=== PATIENT | female | born 1935 | race Hispanic/Latino ===

== ENCOUNTER 2017-11-17 15:57 | Emergency (ER) | payer MEDICARE ==
[~2017-11-17 15:57] MED LIST: ACET-66 PO; CYAN250014 PO; DIPH25TA18 PO; DONE10TA43 PO; ESCI20TA36 PO; FOLI1TAB15 PO; GLIP10TA9 PO; INSLAN SQ; LEVO500T2 PO; MEMA28CA PO; MONT10TA21 PO; MV C PO; PRAV20TA4 PO; ROPI1TAB11 PO
[2017-11-17 16:54] LABS: BASOPHILS % (AUTO) 0.5 % (0.0-5.0); EOSINOPHILS % (AUTO) 1.9 % (0.0-8.0); HEMATOCRIT 38.5 % (36-48); LYMPHOCYTES % (AUTO) 28.4 % (21.0-51.0); MEAN CORPUSCULAR HEMOGLOBIN 31.1 pg (27.0-33.0); MEAN CORPUSCULAR HGB CONC 33.9 g/dL (32.0-36.0); MEAN CORPUSCULAR VOLUME 91.8 fL (79-99); MONOCYTES % (AUTO) 8.6 % (3.0-13.0); NEUTROPHILS % (AUTO) 60.6 % (40.0-77.0); PLATELET COUNT (AUTO) 289 K/uL (130-400); RED BLOOD CELL COUNT(AUTO) 4.19 MIL/uL (4.00-5.50); RED CELL DISTRIBUTION WIDTH 14.3 % (11.0-15.5); WHITE BLOOD COUNT (AUTO) 8.5 K/uL (4.8-10.8)
[2017-11-17 17:03] LABS: CREATININE 1.1 mg/dL (0.5-1.5); POTASSIUM 3.9 mmol/L (3.5-5.1)
[2017-11-17 17:08] LABS: BILIRUBIN,TOTAL 0.3 mg/dL (0.2-1.0); TOTAL PROTEIN, SERUM 6.6 g/dL (6.0-8.3)
[2017-11-17] MEDS ORDERED: SODIUM CHLORIDE 0.9% 500ML 500 ML IV ONE (17:09)
[2017-11-17] MEDS ORDERED: INSULIN HUMULIN R 100 UNIT/ML 3ML ONE (17:42)
== END 2017-11-17 18:26 | disposition home or self-care (01) ==
LOC: EDH 15:57
DX: E11.65 Type 2 diabetes mellitus with hyperglycemia (principal); G20 Parkinson's disease; Z79.4 Long term (current) use of insulin; Z98.890 Other specified postprocedural states
CPT/HCPCS: 36415; 80053; 82948 ×3; 85025; 96374; 99284; J1815; J7040

== ENCOUNTER → 2018-01-05 | Outpatient (CLI) | payer MEDICARE | END | disposition home or self-care (01) | LOC: RAH 08:26 | PROVIDERS: ATTEND Family Medicine | DX: N39.0 Urinary tract infection, site not specified (principal); Z87.440 Personal history of urinary (tract) infections; Z90.49 Acquired absence of other specified parts of digestive tract | CPT/HCPCS: 74176 ==

== ENCOUNTER → 2018-04-18 | Outpatient (CLI) | payer MEDICARE | END | disposition home or self-care (01) | LOC: SHCH 10:33 | PROVIDERS: ATTEND Internal Medicine Cardiovascular Disease | DX: R00.2 Palpitations (principal); I10 Essential (primary) hypertension | CPT/HCPCS: 93306 ==

== ENCOUNTER 2018-04-20 11:58 | Emergency (ER) | payer MEDICARE ==
[2018-04-20] MEDS ORDERED: KETOROLAC TROMETHAMINE 30MG/ML ONE (12:40)
[2018-04-20] MEDS ORDERED: ACETAMINOPHEN EXTRA STRENGTH 500 MG TABLET ONE (12:40)
[2018-04-20 12:52] LABS: BASOPHILS % (AUTO) 0.8 % (0.0-5.0); EOSINOPHILS % (AUTO) 1.6 % (0.0-8.0); HEMATOCRIT 40.6 % (36-48); LYMPHOCYTES % (AUTO) 23.6 % (21.0-51.0); MEAN CORPUSCULAR HEMOGLOBIN 31.2 pg (27.0-33.0); MEAN CORPUSCULAR HGB CONC 32.8 g/dL (32.0-36.0); MONOCYTES % (AUTO) 7.4 % (3.0-13.0); NEUTROPHILS % (AUTO) 66.6 % (40.0-77.0); PLATELET COUNT (AUTO) 293 K/uL (130-400); RED BLOOD CELL COUNT(AUTO) 4.27 MIL/uL (4.00-5.50); RED CELL DISTRIBUTION WIDTH 14.8 % (11.0-15.5); WHITE BLOOD COUNT (AUTO) 8.5 K/uL (4.8-10.8)
[2018-04-20 13:14] LABS: CREATININE 0.9 mg/dL (0.5-1.5); POTASSIUM 4.5 mmol/L (3.5-5.1)
== END 2018-04-20 14:48 | disposition home or self-care (01) ==
LOC: EDH 11:58
DX: M17.11 Unilateral primary osteoarthritis, right knee (principal); E11.9 Type 2 diabetes mellitus without complications; E78.5 Hyperlipidemia, unspecified; G20 Parkinson's disease; Z79.4 Long term (current) use of insulin
CPT/HCPCS: 36415; 73562; 80048; 85025; 96372; 99285; J1885

== ENCOUNTER 2018-09-16 08:47 | Inpatient (IN) | payer OTHER, MEDICARE ==
--- NOTE | 2017-09-20 15:00 | NUR ---
AUTH RECD, PT NOT R YET READY FOR DISCHARGE WILL FOLLOW UP IN AM RE PT CAN BE DC TO [facility]
[~2018-09-16] VITALS: Ht 165.1 cm; Wt 89.4 kg
[2018-09-16] MEDS: SODIUM CHLORIDE 0.9% 1000ML 1,000 ML IV SCH ×2 (08:36→15:00)
[2018-09-16] MEDS ORDERED: SODIUM CHLORIDE 0.9% 1000ML 1,000 ML IV ONE (09:22)
[2018-09-16 09:27] LABS: APPEARANCE,URINE Cloudy (CLEAR); BILIRUBIN,URINE Negative (NEGATIVE); COLOR,URINE Yellow (YELLOW); GLUCOSE, URINE (UA) Negative (NEGATIVE); KETONES,URINE Negative (NEGATIVE); LEUKOCYTE ESTERASE ,URINE Trace (NEGATIVE); NITRATE,URINE Negative (NEGATIVE); OCCULT BLOOD,URINE Negative (NEGATIVE); PROTEIN,URINE Negative (NEGATIVE); UROBILINOGEN,URINE 0.2 mg/dL (0.2-1.0)
[2018-09-16 09:33] LABS: BASOPHILS % (AUTO) 0.7 % (0.0-5.0); EOSINOPHILS % (AUTO) 1.2 % (0.0-8.0); HEMATOCRIT 40.8 % (36-48); LYMPHOCYTES % (AUTO) 16.3 % (21.0-51.0); MEAN CORPUSCULAR HEMOGLOBIN 29.8 pg (27.0-33.0); MEAN CORPUSCULAR HGB CONC 32.5 g/dL (32.0-36.0); MEAN CORPUSCULAR VOLUME 91.7 fL (79-99); MONOCYTES % (AUTO) 6.1 % (3.0-13.0); NEUTROPHILS % (AUTO) 75.7 % (40.0-77.0); PLATELET COUNT (AUTO) 306 K/uL (130-400); RED BLOOD CELL COUNT(AUTO) 4.44 MIL/uL (4.00-5.50); RED CELL DISTRIBUTION WIDTH 15.7 % (11.0-15.5); WHITE BLOOD COUNT (AUTO) 11.2 K/uL (4.8-10.8)
[2018-09-16 09:34] LABS: AMPHET/METH SCREEN,URINE NEGATIVE (NEGATIVE); BARBITURATE SCREEN, URINE NEGATIVE (NEGATIVE); BENZODIAZEPINES SCREEN,URINE NEGATIVE (NEGATIVE); CANNABINOID SCREEN,URINE NEGATIVE (NEGATIVE); COCAINE SCREEN,URINE NEGATIVE (NEGATIVE); OPIATE SCREEN,URINE NEGATIVE (NEGATIVE); PHENCYCLIDINE SCREEN,URINE NEGATIVE (NEGATIVE)
[2018-09-16 09:47] LABS: RBC,URINE 0-1 /HPF (0-1)
[2018-09-16 09:48] LABS: BACTERIA,URINE Rare /HPF (None Seen); WBC,URINE 0-1 /HPF (0-1)
[2018-09-16] MEDS ORDERED: ONDANSETRON HCL 4 MG/2 ML VIAL ONE (09:57)
[2018-09-16] MEDS ORDERED: MORPHINE SULFATE 4 MG/1ML SYG ONE (09:57)
[2018-09-16 10:02] LABS: ALBUMIN 2.9 g/dL (3.5-5.0); BILIRUBIN,TOTAL 0.5 mg/dL (0.2-1.0); TOTAL PROTEIN, SERUM 6.7 g/dL (6.0-8.3)
[2018-09-16] MEDS ORDERED: HYDRALAZINE HCL 20 MG/ML VIAL IV PRN (10:45)
[2018-09-16] MEDS ORDERED: ONDANSETRON HCL 4 MG/2 ML VIAL IV PRN (10:45)
--- NOTE | 2018-09-16 14:45 | NUR ---
BLOOD SUGAR REPORT TAKEN FROM ROSIBEL SEXTON IN ED DEPARTMENT. LAST BLOOD SUGAR OF 78 AT ABOUT 9:30AM. PATIENT HAS BEEN NPO FOR POSSIBLE PROCEDURE WITH DR. JOLLY. BLOOD SUGAR CHECKED AT BEDSIDE ONCE PATIENT WAS IN ROOM, BLOOD SUGAR NOTED TO BE 52. MIKEL [place] TREASURER MADE AWARE, OK FOR 8OZ OF ORANGE JUICE AND INITIATE HYPOGLYCEMIC PROTOCOL. PT IS AWAKE AND ALERT, SLIGHTLY PALE BUT STATING SHE FEELS OK. 8OZ OF ORANGE JUICE GIVEN AND REPEAT BLOOD SUGAR NOTED TO BE 78, ASYMPTOMATIC AT THE MOMENT. WILL CONTINUE TO MONITOR PT CLOSELY.
[2018-09-16 15:02] VITALS: BP 118/49
[2018-09-16] MEDS ORDERED: GLUCAGON 1MG KIT 1 MG ML IM PRN (15:30)
[2018-09-16] MEDS: MORPHINE SULFATE 4 MG/1ML SYG IV PRN ×2 (15:30→20:47)
[2018-09-16] MEDS ORDERED: DEXTROSE 50%-WATER 50 ML DISP.SYRIN IV PRN (15:30)
[2018-09-16] MEDS: INSULIN HUMULIN R 100 UNIT/ML 3ML SQ SCH ×2 (16:30→20:42)
[2018-09-16 17:16] VITALS: BP 115/48
[2018-09-16] MEDS ORDERED: CHOL200074 PO (19:07)
[2018-09-16] MEDS ORDERED: AEC81 PO (19:07)
[2018-09-16] MEDS ORDERED: MIRT-72 PO (19:07)
[2018-09-16] MEDS ORDERED: GLIP10TA9 PO (19:08)
[2018-09-16] MEDS ORDERED: ESCI20TA36 PO (19:08)
[2018-09-16] MEDS ORDERED: INSLAN SQ (19:09)
[2018-09-16 19:53] VITALS: BP 103/52
[2018-09-16] MEDS: HEPARIN SODIUM 5000UNIT/ML 1ML VIAL SQ SCH (20:42)
[2018-09-16] MEDS: METOPROLOL TARTRATE 25 MG TAB PO SCH (20:42)
[2018-09-16] MEDS ORDERED: FAMOTIDINE/PF 20 MG/2 ML VIAL IV SCH (21:00)
[2018-09-16] MEDS: ACETAMINOPHEN 325 MG TAB PO PRN (22:23)
[2018-09-16] MEDS ORDERED: ACETAMINOPHEN 500 MG PO PRN (23:00)
[2018-09-16 23:20] VITALS: BP 113/52
[2018-09-17] MEDS ORDERED: SODIUM CHLORIDE 0.9% 500ML 500 ML IV ONE (03:19)
[2018-09-17 04:16] VITALS: BP 109/55
[2018-09-17] MEDS: INSULIN HUMULIN R 100 UNIT/ML 3ML SQ SCH ×4 (06:38→20:07)
[2018-09-17] MEDS: MORPHINE SULFATE 2 MG/ML 1ML SYG IV PRN ×3 (06:39→11:38)
[2018-09-17 07:47] VITALS: BP 110/40
[2018-09-17] MEDS: METOPROLOL TARTRATE 25 MG TAB PO SCH ×2 (09:00→20:54)
[2018-09-17] MEDS: ***HM***Cholecalciferol (Vitamin D3) 1,000 UNIT PO SCH (09:00)
[2018-09-17] MEDS: MEMANTINE HCL 28 MG PO SCH (09:00)
[2018-09-17] MEDS: INSULIN GLARGINE 100 UNITS/ML 10 ML VIAL SQ SCH (09:00)
[2018-09-17] MEDS: ESCITALOPRAM OXALATE 20 MG PO SCH ×2 (09:00→21:00)
[2018-09-17] MEDS: HEPARIN SODIUM 5000UNIT/ML 1ML VIAL SQ SCH ×2 (09:06→21:14)
[2018-09-17] MEDS: ASPIRIN 81 MG EC TAB PO SCH (09:11)
[2018-09-17] MEDS: ROPINIROLE HCL 1 MG TABLET PO SCH ×3 (09:11→20:54)
[2018-09-17] MEDS: FAMOTIDINE/PF 20 MG/2 ML VIAL IV SCH (09:12)
[2018-09-17] MEDS: ACETAMINOPHEN 325 MG TAB PO PRN (09:13)
[2018-09-17 11:19] VITALS: BP 107/45
[2018-09-17] MEDS: SODIUM CHLORIDE 0.9% 1000ML 1,000 ML IV SCH ×2 (12:20→21:17)
[2018-09-17 15:30] VITALS: BP 118/49
--- NOTE | 2018-09-17 15:41 | NUR ---
cm note met with patient and with daughter christophe and other son. pt resides at home with christophe and other family members. , and uses walker for ambulation, has sc, caro,and bsc, recliner, has provider 1-2hrs daily. states daughter takes to [facility] via private vehicle. discussed snf level of care for rehab, but daughter states she would rather have her go home instead of snf, and would request HH if possible. dcpla is back to home. Addendum: 09/17/18 at 1544 by ANA LLAMAS CM Amended: Links added.
[2018-09-17 19:54] VITALS: BP 125/76
[2018-09-17] MEDS: DONEPEZIL HCL 5 MG TAB PO SCH (20:54)
[2018-09-17] MEDS: MIRTAZAPINE 15 MG TABLET PO SCH (20:54)
[2018-09-17] MEDS: MONTELUKAST SODIUM 10 MG TAB PO SCH (20:54)
[2018-09-17] MEDS: SIMVASTATIN 20 MG TABLET PO SCH (20:54)
[2018-09-17] MEDS ORDERED: ***HM***Pravastatin Sodium 20 MG PO SCH (21:00)
[2018-09-18] VITALS (7 sets, daily range): BP systolic 107–143; BP diastolic 50–61
[2018-09-18] MEDS: ACETAMINOPHEN 325 MG TAB PO PRN (00:06)
[2018-09-18 04:33] LABS: EOSINOPHILS % (AUTO) 1.5 % (0.0-8.0); LYMPHOCYTES % (AUTO) 25.9 % (21.0-51.0); MEAN CORPUSCULAR HEMOGLOBIN 30.3 pg (27.0-33.0); MEAN CORPUSCULAR HGB CONC 33.1 g/dL (32.0-36.0); MEAN CORPUSCULAR VOLUME 91.4 fL (79-99); MONOCYTES % (AUTO) 8.2 % (3.0-13.0); NEUTROPHILS % (AUTO) 63.4 % (40.0-77.0); PLATELET COUNT (AUTO) 266 K/uL (130-400); RED BLOOD CELL COUNT(AUTO) 3.61 MIL/uL (4.00-5.50); RED CELL DISTRIBUTION WIDTH 15.5 % (11.0-15.5); WHITE BLOOD COUNT (AUTO) 8.3 K/uL (4.8-10.8)
[2018-09-18 04:59] LABS: POTASSIUM 3.9 mmol/L (3.5-5.1)
[2018-09-18] MEDS: INSULIN HUMULIN R 100 UNIT/ML 3ML SQ SCH ×4 (05:55→21:00)
[2018-09-18] MEDS: INSULIN GLARGINE 100 UNITS/ML 10 ML VIAL SQ SCH (08:22)
[2018-09-18] MEDS: HEPARIN SODIUM 5000UNIT/ML 1ML VIAL SQ SCH ×2 (08:22→21:05)
[2018-09-18] MEDS: FAMOTIDINE/PF 20 MG/2 ML VIAL IV SCH (08:24)
[2018-09-18] MEDS: ASPIRIN 81 MG EC TAB PO SCH (08:24)
[2018-09-18] MEDS: ROPINIROLE HCL 1 MG TABLET PO SCH ×3 (08:24→20:50)
[2018-09-18] MEDS: ***HM***Cholecalciferol (Vitamin D3) 1,000 UNIT PO SCH (08:25)
[2018-09-18] MEDS: MEMANTINE HCL 28 MG PO SCH (08:25)
[2018-09-18] MEDS: METOPROLOL TARTRATE 25 MG TAB PO SCH ×2 (08:26→20:50)
[2018-09-18] MEDS: ESCITALOPRAM OXALATE 20 MG PO SCH ×2 (08:26→21:06)
[2018-09-18] MEDS: LEVOFLOXACIN 500 MG/D5W 100 ML 100 ML IV SCH (14:51)
[2018-09-18] MEDS: POLYETHYLENE GLYCOL 3350 17 GM POWD.PACK PO SCH (14:51)
[2018-09-18] MEDS: SODIUM CHLORIDE 0.9% 1000ML 1,000 ML IV SCH (15:59)
[2018-09-18] MEDS: MONTELUKAST SODIUM 10 MG TAB PO SCH (20:50)
[2018-09-18] MEDS: DONEPEZIL HCL 5 MG TAB PO SCH (20:50)
[2018-09-18] MEDS: MIRTAZAPINE 15 MG TABLET PO SCH (20:50)
[2018-09-18] MEDS: SIMVASTATIN 20 MG TABLET PO SCH (20:50)
[2018-09-19] MEDS ORDERED: SODIUM CHLORIDE 0.9% 500ML 500 ML IV SCH
[2018-09-19] MEDS: SODIUM CHLORIDE 0.9% 1000ML 1,000 ML IV SCH ×2 (02:58→16:45)
[2018-09-19 03:15] VITALS: BP 153/70
[2018-09-19 04:51] LABS: BASOPHILS % (AUTO) 0.3 % (0.0-5.0); EOSINOPHILS % (AUTO) 1.7 % (0.0-8.0); HEMATOCRIT 37.1 % (36-48); LYMPHOCYTES % (AUTO) 17.9 % (21.0-51.0); MEAN CORPUSCULAR HEMOGLOBIN 30.1 pg (27.0-33.0); MEAN CORPUSCULAR HGB CONC 33.1 g/dL (32.0-36.0); MEAN CORPUSCULAR VOLUME 90.9 fL (79-99); MONOCYTES % (AUTO) 7.1 % (3.0-13.0); PLATELET COUNT (AUTO) 286 K/uL (130-400); RED BLOOD CELL COUNT(AUTO) 4.08 MIL/uL (4.00-5.50); RED CELL DISTRIBUTION WIDTH 15.2 % (11.0-15.5); WHITE BLOOD COUNT (AUTO) 9.2 K/uL (4.8-10.8)
[2018-09-19 05:07] LABS: CREATININE 0.9 mg/dL (0.5-1.5); POTASSIUM 3.8 mmol/L (3.5-5.1)
[2018-09-19] MEDS: INSULIN HUMULIN R 100 UNIT/ML 3ML SQ SCH ×4 (05:38→20:33)
[2018-09-19 08:15] VITALS: BP 144/60
[2018-09-19] MEDS: FAMOTIDINE/PF 20 MG/2 ML VIAL IV SCH (08:35)
[2018-09-19] MEDS: METOPROLOL TARTRATE 25 MG TAB PO SCH ×2 (08:35→20:42)
[2018-09-19] MEDS: ROPINIROLE HCL 1 MG TABLET PO SCH ×3 (08:35→20:39)
[2018-09-19] MEDS: ASPIRIN 81 MG EC TAB PO SCH (08:35)
[2018-09-19] MEDS: POLYETHYLENE GLYCOL 3350 17 GM POWD.PACK PO SCH (08:36)
[2018-09-19] MEDS: ESCITALOPRAM OXALATE 20 MG PO SCH ×2 (08:37→20:43)
[2018-09-19] MEDS: ***HM***Cholecalciferol (Vitamin D3) 1,000 UNIT PO SCH (08:37)
[2018-09-19] MEDS: LEVOFLOXACIN 500 MG/D5W 100 ML 100 ML IV SCH (08:37)
[2018-09-19] MEDS: MEMANTINE HCL 28 MG PO SCH (08:37)
[2018-09-19] MEDS: HEPARIN SODIUM 5000UNIT/ML 1ML VIAL SQ SCH ×2 (08:39→20:43)
[2018-09-19] MEDS: INSULIN GLARGINE 100 UNITS/ML 10 ML VIAL SQ SCH (08:40)
--- NOTE | 2018-09-19 10:00 | NUR ---
SENT REFERRAL TO [facility] REQUESTED WAITING ON AUTH
[2018-09-19 11:12] VITALS: BP 118/60
[2018-09-19 16:07] VITALS: BP 151/77
[2018-09-19 20:00] VITALS: BP 139/60
[2018-09-19] MEDS: MONTELUKAST SODIUM 10 MG TAB PO SCH (20:38)
[2018-09-19] MEDS: SIMVASTATIN 20 MG TABLET PO SCH (20:38)
[2018-09-19] MEDS: MIRTAZAPINE 15 MG TABLET PO SCH (20:38)
[2018-09-19] MEDS: DONEPEZIL HCL 5 MG TAB PO SCH (20:39)
[2018-09-20] VITALS (7 sets, daily range): BP systolic 121–147; BP diastolic 56–69
[2018-09-20 05:30] LABS: BASOPHILS % (AUTO) 0.3 % (0.0-5.0); EOSINOPHILS % (AUTO) 1.6 % (0.0-8.0); HEMATOCRIT 33.1 % (36-48); LYMPHOCYTES % (AUTO) 23.8 % (21.0-51.0); MEAN CORPUSCULAR HEMOGLOBIN 30.5 pg (27.0-33.0); MEAN CORPUSCULAR HGB CONC 33.8 g/dL (32.0-36.0); MEAN CORPUSCULAR VOLUME 90.2 fL (79-99); MONOCYTES % (AUTO) 9.8 % (3.0-13.0); NEUTROPHILS % (AUTO) 64.5 % (40.0-77.0); PLATELET COUNT (AUTO) 317 K/uL (130-400); RED BLOOD CELL COUNT(AUTO) 3.67 MIL/uL (4.00-5.50); RED CELL DISTRIBUTION WIDTH 15.4 % (11.0-15.5); WHITE BLOOD COUNT (AUTO) 9.5 K/uL (4.8-10.8)
[2018-09-20] MEDS: SODIUM CHLORIDE 0.9% 1000ML 1,000 ML IV SCH ×2 (05:36→18:58)
[2018-09-20 05:45] LABS: CREATININE 0.9 mg/dL (0.5-1.5); POTASSIUM 3.5 mmol/L (3.5-5.1)
[2018-09-20] MEDS: INSULIN HUMULIN R 100 UNIT/ML 3ML SQ SCH ×4 (05:55→20:28)
[2018-09-20] MEDS: HEPARIN SODIUM 5000UNIT/ML 1ML VIAL SQ SCH ×2 (08:44→19:24)
[2018-09-20] MEDS: INSULIN GLARGINE 100 UNITS/ML 10 ML VIAL SQ SCH (08:45)
[2018-09-20] MEDS: FAMOTIDINE/PF 20 MG/2 ML VIAL IV SCH (08:46)
[2018-09-20] MEDS: POLYETHYLENE GLYCOL 3350 17 GM POWD.PACK PO SCH (08:47)
[2018-09-20] MEDS: METOPROLOL TARTRATE 25 MG TAB PO SCH ×2 (08:47→19:26)
[2018-09-20] MEDS: ASPIRIN 81 MG EC TAB PO SCH (08:47)
[2018-09-20] MEDS: ROPINIROLE HCL 1 MG TABLET PO SCH ×3 (08:47→19:25)
[2018-09-20] MEDS: MEMANTINE HCL 28 MG PO SCH (08:48)
[2018-09-20] MEDS: ESCITALOPRAM OXALATE 20 MG PO SCH ×2 (08:48→19:30)
[2018-09-20] MEDS: LEVOFLOXACIN 500 MG/D5W 100 ML 100 ML IV SCH (08:48)
[2018-09-20] MEDS: ***HM***Cholecalciferol (Vitamin D3) 1,000 UNIT PO SCH (08:48)
[2018-09-20] MEDS ORDERED: FUROSEMIDE 10 MG/ML 2ML VIAL IV ONE (12:30)
[2018-09-20] MEDS: MONTELUKAST SODIUM 10 MG TAB PO SCH (19:25)
[2018-09-20] MEDS: DONEPEZIL HCL 5 MG TAB PO SCH (19:25)
[2018-09-20] MEDS: MIRTAZAPINE 15 MG TABLET PO SCH (19:25)
[2018-09-20] MEDS: MORPHINE SULFATE 4 MG/1ML SYG IV PRN (19:34)
[2018-09-21] MEDS: MORPHINE SULFATE 4 MG/1ML SYG IV PRN ×2 (01:11→22:39)
[2018-09-21 03:43] VITALS: BP 145/62
[2018-09-21] MEDS: INSULIN HUMULIN R 100 UNIT/ML 3ML SQ SCH ×4 (05:36→20:15)
[2018-09-21 07:54] VITALS: BP 146/58
[2018-09-21] MEDS: METOPROLOL TARTRATE 25 MG TAB PO SCH ×2 (08:31→19:23)
[2018-09-21] MEDS: FAMOTIDINE/PF 20 MG/2 ML VIAL IV SCH (08:31)
[2018-09-21] MEDS: POLYETHYLENE GLYCOL 3350 17 GM POWD.PACK PO SCH (08:31)
[2018-09-21] MEDS: ROPINIROLE HCL 1 MG TABLET PO SCH ×3 (08:31→19:23)
[2018-09-21] MEDS: ASPIRIN 81 MG EC TAB PO SCH (08:31)
[2018-09-21] MEDS: LEVOFLOXACIN 500 MG/D5W 100 ML 100 ML IV SCH (08:32)
[2018-09-21] MEDS: HEPARIN SODIUM 5000UNIT/ML 1ML VIAL SQ SCH ×2 (08:32→19:21)
[2018-09-21] MEDS: ESCITALOPRAM OXALATE 20 MG PO SCH ×2 (08:33→19:36)
[2018-09-21] MEDS: INSULIN GLARGINE 100 UNITS/ML 10 ML VIAL SQ SCH (08:33)
[2018-09-21] MEDS: ***HM***Cholecalciferol (Vitamin D3) 1,000 UNIT PO SCH (08:34)
[2018-09-21] MEDS: MEMANTINE HCL 28 MG PO SCH (08:34)
[2018-09-21] MEDS: SODIUM CHLORIDE 0.9% 1000ML 1,000 ML IV SCH ×2 (08:36→22:39)
[2018-09-21] MEDS: MORPHINE SULFATE 2 MG/ML 1ML SYG IV PRN ×2 (10:38→18:56)
[2018-09-21] MEDS ORDERED: POTASSIUM CHLORIDE 20 MEQ ERTAB PO SCH (11:00)
[2018-09-21 12:06] VITALS: BP 141/54
[2018-09-21] MEDS: ACETAMINOPHEN 325 MG TAB PO PRN ×2 (13:26→13:27)
--- NOTE | 2018-09-21 14:15 | NUR ---
Nutrition intervention: Nutrition notification for LOS. Pt admitted for left bimalleolar fracture, currently on CCD 75gm with fair to good oral intake. Pt states intake is not always 100% however that is her normal baseline. Pt reports no n/v/d, chewing or swallowing difficulties. No constipation or recent wt changes. No family at bedside but CARLIE Triana present during RD visit. Recommendations: Continue current diet therapy. Consult RD as nutrition concerns arise.
[2018-09-21 15:56] VITALS: BP 134/51
[2018-09-21] MEDS ORDERED: FUROSEMIDE 10 MG/ML 2ML VIAL IV SCH (16:00)
[2018-09-21] MEDS: DONEPEZIL HCL 5 MG TAB PO SCH (19:23)
[2018-09-21] MEDS: MONTELUKAST SODIUM 10 MG TAB PO SCH (19:23)
[2018-09-21] MEDS: MIRTAZAPINE 15 MG TABLET PO SCH (19:23)
[2018-09-21 20:09] VITALS: BP 139/64
[2018-09-21 23:54] VITALS: BP 149/65
[2018-09-22 04:00] VITALS: BP 132/66
[2018-09-22 05:12] LABS: HEMATOCRIT 33.3 % (36-48); MEAN CORPUSCULAR HEMOGLOBIN 30.6 pg (27.0-33.0); MEAN CORPUSCULAR HGB CONC 33.5 g/dL (32.0-36.0); MEAN CORPUSCULAR VOLUME 91.3 fL (79-99); PLATELET COUNT (AUTO) 329 K/uL (130-400); RED BLOOD CELL COUNT(AUTO) 3.64 MIL/uL (4.00-5.50); RED CELL DISTRIBUTION WIDTH 15.6 % (11.0-15.5); WHITE BLOOD COUNT (AUTO) 7.1 K/uL (4.8-10.8)
[2018-09-22 05:37] LABS: POTASSIUM 4.1 mmol/L (3.5-5.1)
[2018-09-22] MEDS: INSULIN HUMULIN R 100 UNIT/ML 3ML SQ SCH ×4 (05:54→20:41)
[2018-09-22 08:07] VITALS: BP 136/56
[2018-09-22] MEDS: ROPINIROLE HCL 1 MG TABLET PO SCH ×3 (08:26→20:19)
[2018-09-22] MEDS: ASPIRIN 81 MG EC TAB PO SCH (08:26)
[2018-09-22] MEDS: POLYETHYLENE GLYCOL 3350 17 GM POWD.PACK PO SCH (08:26)
[2018-09-22] MEDS: FAMOTIDINE/PF 20 MG/2 ML VIAL IV SCH (08:26)
[2018-09-22] MEDS: METOPROLOL TARTRATE 25 MG TAB PO SCH ×2 (08:26→20:19)
[2018-09-22] MEDS: ***HM***Cholecalciferol (Vitamin D3) 1,000 UNIT PO SCH (08:27)
[2018-09-22] MEDS: LEVOFLOXACIN 500 MG/D5W 100 ML 100 ML IV SCH (08:27)
[2018-09-22] MEDS: ESCITALOPRAM OXALATE 20 MG PO SCH ×2 (08:27→20:22)
[2018-09-22] MEDS: MEMANTINE HCL 28 MG PO SCH (08:28)
[2018-09-22] MEDS: INSULIN GLARGINE 100 UNITS/ML 10 ML VIAL SQ SCH (08:37)
[2018-09-22] MEDS: HEPARIN SODIUM 5000UNIT/ML 1ML VIAL SQ SCH ×2 (08:37→20:17)
--- NOTE | 2018-09-22 09:30 | NUR ---
PT NOTE: PATIENT PERFORMED SIT-STAND TRANSFER WITH STANDARD WALKER THIS AM. PATIENT REQUIRES MAX ASSIST X2 FOR SUPINE-SIT TRANSFER AND MAX/MOD ASSISTX2 FOR SIT-STAND. PATIENT WAS ABLE TO ASSIST MORE WITH STANDING THIS AM VS YESTERDAY, THIS IS A POSITIVE DEVELOPMENT. Addendum: 09/22/18 at 1422 by ROGERIO ROBLES PT Amended: Links added.
[2018-09-22] MEDS: MORPHINE SULFATE 2 MG/ML 1ML SYG IV PRN (10:10)
[2018-09-22] MEDS: SODIUM CHLORIDE 0.9% 1000ML 1,000 ML IV SCH ×2 (10:37→23:42)
[2018-09-22] MEDS: ACETAMINOPHEN 325 MG TAB PO PRN (13:45)
--- NOTE | 2018-09-22 14:30 | NUR ---
UPDATES/CLINICALS FAXED. ADVISED BY Tita RICHARDSON ADMIN THAT THE AUTH FOR [facility] WAS ONLY GOOD UNTIL NOON TODAY; RE SENT CLINICAL TO [facility] INCLUDING NEW THERAPY NOTES. EXPLAINED TO FAMILY THAT THIS IS A PROCESS. PT IS IMPROVING W PHYSICAL THERAPY BUT STILL NEEDS SNF. ADIVSED DR. LYONS WE WOULD RE SUBMIT FOR AUTH. PT STILL NO READY FOR DISCHARGE
[2018-09-22 16:12] VITALS: BP 146/61
[2018-09-22 20:01] VITALS: BP 142/57
[2018-09-22] MEDS: MIRTAZAPINE 15 MG TABLET PO SCH (20:19)
[2018-09-22] MEDS: DONEPEZIL HCL 5 MG TAB PO SCH (20:19)
[2018-09-22] MEDS: MONTELUKAST SODIUM 10 MG TAB PO SCH (20:19)
[2018-09-22] MEDS: MORPHINE SULFATE 4 MG/1ML SYG IV PRN ×2 (20:28→23:43)
[2018-09-23 00:03] VITALS: BP 137/64
[2018-09-23 04:30] VITALS: BP 143/59
[2018-09-23 04:35] LABS: HEMATOCRIT 34.6 % (36-48); MEAN CORPUSCULAR HEMOGLOBIN 30.3 pg (27.0-33.0); MEAN CORPUSCULAR HGB CONC 33.4 g/dL (32.0-36.0); MEAN CORPUSCULAR VOLUME 90.7 fL (79-99); NUCLEATED RED BLOOD CELLS 0.1 % (0.0-0.19); PLATELET COUNT (AUTO) 350 K/uL (130-400); RED BLOOD CELL COUNT(AUTO) 3.81 MIL/uL (4.00-5.50); RED CELL DISTRIBUTION WIDTH 15.9 % (11.0-15.5); WHITE BLOOD COUNT (AUTO) 7.1 K/uL (4.8-10.8)
[2018-09-23 05:06] LABS: CREATININE 0.9 mg/dL (0.5-1.5); POTASSIUM 3.9 mmol/L (3.5-5.1)
[2018-09-23] MEDS: INSULIN HUMULIN R 100 UNIT/ML 3ML SQ SCH ×4 (06:37→21:00)
[2018-09-23 08:00] VITALS: BP 137/64
[2018-09-23] MEDS ORDERED: FUROSEMIDE 10 MG/ML 2ML VIAL IV SCH (08:00)
[2018-09-23] MEDS: ***HM***Cholecalciferol (Vitamin D3) 1,000 UNIT PO SCH ×2 (09:00→13:51)
[2018-09-23] MEDS: POLYETHYLENE GLYCOL 3350 17 GM POWD.PACK PO SCH (09:12)
[2018-09-23] MEDS: METOPROLOL TARTRATE 25 MG TAB PO SCH ×2 (09:16→22:14)
[2018-09-23] MEDS: ESCITALOPRAM OXALATE 20 MG PO SCH ×2 (09:20→21:00)
[2018-09-23] MEDS: ROPINIROLE HCL 1 MG TABLET PO SCH ×3 (09:29→22:16)
[2018-09-23] MEDS: FAMOTIDINE/PF 20 MG/2 ML VIAL IV SCH (09:30)
[2018-09-23] MEDS: ASPIRIN 81 MG EC TAB PO SCH (09:30)
[2018-09-23] MEDS: HEPARIN SODIUM 5000UNIT/ML 1ML VIAL SQ SCH ×2 (09:31→22:16)
[2018-09-23] MEDS: INSULIN GLARGINE 100 UNITS/ML 10 ML VIAL SQ SCH (09:32)
[2018-09-23] MEDS: LEVOFLOXACIN 500 MG/D5W 100 ML 100 ML IV SCH (09:32)
[2018-09-23] MEDS: MEMANTINE HCL 28 MG PO SCH (09:49)
[2018-09-23 12:00] VITALS: BP 141/52
[2018-09-23 16:00] VITALS: BP 140/56
[2018-09-23 20:25] VITALS: BP 130/55
[2018-09-23] MEDS: DONEPEZIL HCL 5 MG TAB PO SCH (22:14)
[2018-09-23] MEDS: MIRTAZAPINE 15 MG TABLET PO SCH (22:14)
[2018-09-23] MEDS: MONTELUKAST SODIUM 10 MG TAB PO SCH (22:14)
[2018-09-23] MEDS: SODIUM CHLORIDE 0.9% 1000ML 1,000 ML IV SCH (22:15)
[2018-09-24] VITALS (7 sets, daily range): BP systolic 138–157; BP diastolic 51–67
[2018-09-24] MEDS: SODIUM CHLORIDE 0.9% 1000ML 1,000 ML IV SCH ×2 (02:58→21:11)
[2018-09-24 04:24] LABS: BASOPHILS % (AUTO) 1.3 % (0.0-5.0); EOSINOPHILS % (AUTO) 3.8 % (0.0-8.0); HEMATOCRIT 34.2 % (36-48); LYMPHOCYTES % (AUTO) 25.9 % (21.0-51.0); MEAN CORPUSCULAR HEMOGLOBIN 30.3 pg (27.0-33.0); MEAN CORPUSCULAR HGB CONC 33.4 g/dL (32.0-36.0); MEAN CORPUSCULAR VOLUME 90.7 fL (79-99); MONOCYTES % (AUTO) 9.3 % (3.0-13.0); NEUTROPHILS % (AUTO) 59.7 % (40.0-77.0); PLATELET COUNT (AUTO) 380 K/uL (130-400); RED BLOOD CELL COUNT(AUTO) 3.77 MIL/uL (4.00-5.50); RED CELL DISTRIBUTION WIDTH 15.6 % (11.0-15.5); WHITE BLOOD COUNT (AUTO) 7.7 K/uL (4.8-10.8)
[2018-09-24 05:17] LABS: POTASSIUM 3.6 mmol/L (3.5-5.1)
[2018-09-24] MEDS: INSULIN HUMULIN R 100 UNIT/ML 3ML SQ SCH ×4 (05:51→21:00)
[2018-09-24] MEDS: POLYETHYLENE GLYCOL 3350 17 GM POWD.PACK PO SCH (08:29)
[2018-09-24] MEDS: METOPROLOL TARTRATE 25 MG TAB PO SCH ×2 (08:30→21:09)
[2018-09-24] MEDS: INSULIN GLARGINE 100 UNITS/ML 10 ML VIAL SQ SCH (08:30)
[2018-09-24] MEDS: ROPINIROLE HCL 1 MG TABLET PO SCH ×3 (08:30→21:09)
[2018-09-24] MEDS: HEPARIN SODIUM 5000UNIT/ML 1ML VIAL SQ SCH ×2 (08:30→21:17)
[2018-09-24] MEDS: ASPIRIN 81 MG EC TAB PO SCH (08:31)
[2018-09-24] MEDS: LEVOFLOXACIN 500 MG/D5W 100 ML 100 ML IV SCH (08:31)
[2018-09-24] MEDS: ***HM***Cholecalciferol (Vitamin D3) 1,000 UNIT PO SCH (08:34)
[2018-09-24] MEDS: ESCITALOPRAM OXALATE 20 MG PO SCH ×2 (08:35→21:10)
[2018-09-24] MEDS: MEMANTINE HCL 28 MG PO SCH (08:35)
[2018-09-24] MEDS: FAMOTIDINE/PF 20 MG/2 ML VIAL IV SCH (08:40)
[2018-09-24] MEDS: MONTELUKAST SODIUM 10 MG TAB PO SCH (21:09)
[2018-09-24] MEDS: MIRTAZAPINE 15 MG TABLET PO SCH (21:09)
[2018-09-24] MEDS: DONEPEZIL HCL 5 MG TAB PO SCH (21:09)
[2018-09-25] MEDS: SODIUM CHLORIDE 0.9% 1000ML 1,000 ML IV SCH ×3 (00:06→14:26)
[2018-09-25 04:00] VITALS: BP 144/56
[2018-09-25 06:00] LABS: BASOPHILS % (AUTO) 0.8 % (0.0-5.0); EOSINOPHILS % (AUTO) 4.2 % (0.0-8.0); HEMATOCRIT 33.8 % (36-48); LYMPHOCYTES % (AUTO) 23.3 % (21.0-51.0); MEAN CORPUSCULAR HEMOGLOBIN 30.5 pg (27.0-33.0); MEAN CORPUSCULAR HGB CONC 33.6 g/dL (32.0-36.0); MEAN CORPUSCULAR VOLUME 90.7 fL (79-99); MONOCYTES % (AUTO) 8.7 % (3.0-13.0); PLATELET COUNT (AUTO) 351 K/uL (130-400); RED BLOOD CELL COUNT(AUTO) 3.73 MIL/uL (4.00-5.50); WHITE BLOOD COUNT (AUTO) 7.4 K/uL (4.8-10.8)
[2018-09-25] MEDS: INSULIN HUMULIN R 100 UNIT/ML 3ML SQ SCH ×4 (06:10→21:00)
[2018-09-25 06:32] LABS: POTASSIUM 3.7 mmol/L (3.5-5.1)
[2018-09-25 06:33] LABS: CREATININE 0.8 mg/dL (0.5-1.5)
[2018-09-25 08:00] VITALS: BP 147/73
[2018-09-25] MEDS: POLYETHYLENE GLYCOL 3350 17 GM POWD.PACK PO SCH (08:47)
[2018-09-25] MEDS: LEVOFLOXACIN 500 MG/D5W 100 ML 100 ML IV SCH (08:47)
[2018-09-25] MEDS: METOPROLOL TARTRATE 25 MG TAB PO SCH ×2 (08:47→20:23)
[2018-09-25] MEDS: HEPARIN SODIUM 5000UNIT/ML 1ML VIAL SQ SCH ×2 (08:51→20:41)
[2018-09-25] MEDS: ROPINIROLE HCL 1 MG TABLET PO SCH ×3 (08:51→20:24)
[2018-09-25] MEDS: ASPIRIN 81 MG EC TAB PO SCH (08:51)
[2018-09-25] MEDS: INSULIN GLARGINE 100 UNITS/ML 10 ML VIAL SQ SCH (08:52)
[2018-09-25] MEDS: ***HM***Cholecalciferol (Vitamin D3) 1,000 UNIT PO SCH (08:53)
[2018-09-25] MEDS: MEMANTINE HCL 28 MG PO SCH (08:54)
[2018-09-25] MEDS: ESCITALOPRAM OXALATE 20 MG PO SCH ×2 (08:54→20:25)
[2018-09-25] MEDS: FAMOTIDINE/PF 20 MG/2 ML VIAL IV SCH (08:55)
[2018-09-25 12:00] VITALS: BP 152/66
[2018-09-25] MEDS ORDERED: FUROSEMIDE 10 MG/ML 2ML VIAL IV SCH (13:30)
[2018-09-25] MEDS: AZITHROMYCIN 500MG+NS 250ML 250 ML IV SCH (14:25)
[2018-09-25] MEDS: ACETAMINOPHEN 325 MG TAB PO PRN (14:33)
[2018-09-25 16:00] VITALS: BP 119/56
[2018-09-25 20:15] VITALS: BP 139/58
[2018-09-25] MEDS: MIRTAZAPINE 15 MG TABLET PO SCH (20:23)
[2018-09-25] MEDS: MONTELUKAST SODIUM 10 MG TAB PO SCH (20:24)
[2018-09-25] MEDS: DONEPEZIL HCL 5 MG TAB PO SCH (20:24)
[2018-09-25 23:56] VITALS: BP 141/57
[2018-09-26 03:38] VITALS: BP 156/63
[2018-09-26] MEDS: INSULIN HUMULIN R 100 UNIT/ML 3ML SQ SCH ×4 (06:42→20:40)
[2018-09-26 07:24] LABS: BASOPHILS % (AUTO) 0.6 % (0.0-5.0); EOSINOPHILS % (AUTO) 4.1 % (0.0-8.0); HEMATOCRIT 34.8 % (36-48); LYMPHOCYTES % (AUTO) 25.2 % (21.0-51.0); MEAN CORPUSCULAR VOLUME 90.8 fL (79-99); MONOCYTES % (AUTO) 8.8 % (3.0-13.0); NEUTROPHILS % (AUTO) 61.3 % (40.0-77.0); PLATELET COUNT (AUTO) 384 K/uL (130-400); RED BLOOD CELL COUNT(AUTO) 3.83 MIL/uL (4.00-5.50); RED CELL DISTRIBUTION WIDTH 15.9 % (11.0-15.5); WHITE BLOOD COUNT (AUTO) 7.8 K/uL (4.8-10.8)
[2018-09-26 07:36] LABS: ALBUMIN 2.3 g/dL (3.5-5.0); BILIRUBIN,TOTAL 0.3 mg/dL (0.2-1.0); CREATININE 0.9 mg/dL (0.5-1.5); POTASSIUM 3.6 mmol/L (3.5-5.1); TOTAL PROTEIN, SERUM 5.8 g/dL (6.0-8.3)
[2018-09-26 08:00] VITALS: BP 145/50
[2018-09-26] MEDS: INSULIN GLARGINE 100 UNITS/ML 10 ML VIAL SQ SCH (09:49)
[2018-09-26] MEDS: HEPARIN SODIUM 5000UNIT/ML 1ML VIAL SQ SCH ×2 (09:49→20:15)
[2018-09-26] MEDS: POLYETHYLENE GLYCOL 3350 17 GM POWD.PACK PO SCH (09:49)
[2018-09-26] MEDS: FAMOTIDINE/PF 20 MG/2 ML VIAL IV SCH (09:50)
[2018-09-26] MEDS: ROPINIROLE HCL 1 MG TABLET PO SCH ×3 (09:50→20:18)
[2018-09-26] MEDS: METOPROLOL TARTRATE 25 MG TAB PO SCH ×2 (09:50→20:15)
[2018-09-26] MEDS: ASPIRIN 81 MG EC TAB PO SCH (09:50)
[2018-09-26] MEDS: ***HM***Cholecalciferol (Vitamin D3) 1,000 UNIT PO SCH (09:51)
[2018-09-26] MEDS: ESCITALOPRAM OXALATE 20 MG PO SCH ×2 (09:51→20:22)
[2018-09-26] MEDS: LEVOFLOXACIN 500 MG/D5W 100 ML 100 ML IV SCH (09:51)
[2018-09-26] MEDS: MEMANTINE HCL 28 MG PO SCH (09:51)
[2018-09-26] MEDS: SODIUM CHLORIDE 0.9% 1000ML 1,000 ML IV SCH ×2 (09:58→22:29)
[2018-09-26] MEDS ORDERED: POTASSIUM CHLORIDE 20 MEQ ERTAB PO SCH (10:15)
[2018-09-26 12:00] VITALS: BP 132/50
[2018-09-26] MEDS ORDERED: CALCIUM CARBON 500MG CHEW TAB PO PRN (13:15)
[2018-09-26] MEDS: AZITHROMYCIN 500MG+NS 250ML 250 ML IV SCH (13:41)
[2018-09-26 16:00] VITALS: BP 146/60
[2018-09-26 19:05] VITALS: BP 149/70
[2018-09-26] MEDS: MIRTAZAPINE 15 MG TABLET PO SCH (20:18)
[2018-09-26] MEDS: DONEPEZIL HCL 5 MG TAB PO SCH (20:18)
[2018-09-26] MEDS: MONTELUKAST SODIUM 10 MG TAB PO SCH (20:18)
[2018-09-27] VITALS (7 sets, daily range): BP systolic 130–165; BP diastolic 51–72
[2018-09-27] MEDS: INSULIN HUMULIN R 100 UNIT/ML 3ML SQ SCH ×4 (05:58→20:55)
[2018-09-27] MEDS: INSULIN GLARGINE 100 UNITS/ML 10 ML VIAL SQ SCH (09:00)
[2018-09-27] MEDS: POLYETHYLENE GLYCOL 3350 17 GM POWD.PACK PO SCH (09:00)
[2018-09-27] MEDS: HEPARIN SODIUM 5000UNIT/ML 1ML VIAL SQ SCH ×2 (09:28→20:32)
[2018-09-27] MEDS: ASPIRIN 81 MG EC TAB PO SCH (10:03)
[2018-09-27] MEDS: FAMOTIDINE/PF 20 MG/2 ML VIAL IV SCH (10:03)
[2018-09-27] MEDS: ***HM***Cholecalciferol (Vitamin D3) 1,000 UNIT PO SCH (10:03)
[2018-09-27] MEDS: METOPROLOL TARTRATE 25 MG TAB PO SCH ×2 (10:03→20:31)
[2018-09-27] MEDS: ESCITALOPRAM OXALATE 20 MG PO SCH ×2 (10:04→20:33)
[2018-09-27] MEDS: MEMANTINE HCL 28 MG PO SCH (10:04)
[2018-09-27] MEDS: ROPINIROLE HCL 1 MG TABLET PO SCH ×3 (10:07→20:32)
[2018-09-27] MEDS: LEVOFLOXACIN 500 MG/D5W 100 ML 100 ML IV SCH (10:07)
[2018-09-27] MEDS: SODIUM CHLORIDE 0.9% 1000ML 1,000 ML IV SCH (11:49)
[2018-09-27] MEDS: AZITHROMYCIN 500MG+NS 250ML 250 ML IV SCH (13:14)
--- NOTE | 2018-09-27 17:00 | NUR ---
FAXED UPDATES TODAY TO [facility] STILL PENDING AUTH
[2018-09-27] MEDS: DONEPEZIL HCL 5 MG TAB PO SCH (20:33)
[2018-09-27] MEDS: MONTELUKAST SODIUM 10 MG TAB PO SCH (20:33)
[2018-09-27] MEDS: MIRTAZAPINE 15 MG TABLET PO SCH (20:33)
[2018-09-28 03:10] VITALS: BP 158/63
[2018-09-28 05:07] LABS: CREATININE 0.9 mg/dL (0.5-1.5)
[2018-09-28 05:45] LABS: HEMATOCRIT 36.7 % (36-48); MEAN CORPUSCULAR HEMOGLOBIN 30.1 pg (27.0-33.0); MEAN CORPUSCULAR HGB CONC 33.1 g/dL (32.0-36.0); MEAN CORPUSCULAR VOLUME 91.1 fL (79-99); NUCLEATED RED BLOOD CELLS 0.1 % (0.0-0.19); PLATELET COUNT (AUTO) 358 K/uL (130-400); RED BLOOD CELL COUNT(AUTO) 4.02 MIL/uL (4.00-5.50); RED CELL DISTRIBUTION WIDTH 16.1 % (11.0-15.5); WHITE BLOOD COUNT (AUTO) 8.3 K/uL (4.8-10.8)
[2018-09-28] MEDS: INSULIN HUMULIN R 100 UNIT/ML 3ML SQ SCH ×4 (07:30→21:00)
[2018-09-28 08:00] VITALS: BP 145/67
[2018-09-28] MEDS: POLYETHYLENE GLYCOL 3350 17 GM POWD.PACK PO SCH (08:58)
[2018-09-28] MEDS: METOPROLOL TARTRATE 25 MG TAB PO SCH ×2 (08:58→21:15)
[2018-09-28] MEDS: ASPIRIN 81 MG EC TAB PO SCH (08:58)
[2018-09-28] MEDS: LEVOFLOXACIN 500 MG/D5W 100 ML 100 ML IV SCH (08:58)
[2018-09-28] MEDS: ROPINIROLE HCL 1 MG TABLET PO SCH ×3 (08:59→21:15)
[2018-09-28] MEDS: INSULIN GLARGINE 100 UNITS/ML 10 ML VIAL SQ SCH (09:00)
[2018-09-28] MEDS: HEPARIN SODIUM 5000UNIT/ML 1ML VIAL SQ SCH ×2 (09:00→21:18)
[2018-09-28] MEDS ORDERED: FAMOTIDINE 20MG TAB 20 MG TAB PO SCH (09:00)
[2018-09-28] MEDS: ***HM***Cholecalciferol (Vitamin D3) 1,000 UNIT PO SCH (09:01)
[2018-09-28] MEDS: ESCITALOPRAM OXALATE 20 MG PO SCH ×2 (09:02→21:14)
[2018-09-28] MEDS: MEMANTINE HCL 28 MG PO SCH (09:02)
[2018-09-28 12:04] VITALS: BP 140/72
[2018-09-28] MEDS: AZITHROMYCIN 500MG+NS 250ML 250 ML IV SCH (13:22)
[2018-09-28 16:00] VITALS: BP 148/60
--- NOTE | 2018-09-28 17:00 | NUR ---
INSURANCE NOT APPROVING SNF ADIVSED BY RODRÍGUEZ THAT THE INSURANCE STATES THE [facility] PT NOTES ARE FROM 09/26 AND TOO VAGUE, THATTHE SNF ORDER IS TOO OLD AND A NEW ORDER CLAIRFYING THE NEED FOR SNF NEEDS TO BE WRITTEN. WILL RE-SUBMIT WITH UPDATED PT NOTES IN AM.
[2018-09-28 19:09] VITALS: BP 139/65
[2018-09-28] MEDS: MIRTAZAPINE 15 MG TABLET PO SCH (21:15)
[2018-09-28] MEDS: DONEPEZIL HCL 5 MG TAB PO SCH (21:15)
[2018-09-28] MEDS: MONTELUKAST SODIUM 10 MG TAB PO SCH (21:15)
[2018-09-28] MEDS: SODIUM CHLORIDE 0.9% 1000ML 1,000 ML IV SCH (21:19)
[2018-09-28 23:27] VITALS: BP 141/56
[2018-09-29 03:37] VITALS: BP 138/68
[2018-09-29 04:46] LABS: HEMATOCRIT 36.3 % (36-48); MEAN CORPUSCULAR HEMOGLOBIN 30.5 pg (27.0-33.0); MEAN CORPUSCULAR HGB CONC 33.8 g/dL (32.0-36.0); MEAN CORPUSCULAR VOLUME 90.2 fL (79-99); NUCLEATED RED BLOOD CELLS 0.1 % (0.0-0.19); PLATELET COUNT (AUTO) 386 K/uL (130-400); RED BLOOD CELL COUNT(AUTO) 4.02 MIL/uL (4.00-5.50); RED CELL DISTRIBUTION WIDTH 16.1 % (11.0-15.5)
[2018-09-29 04:58] LABS: CREATININE 0.9 mg/dL (0.5-1.5); POTASSIUM 3.8 mmol/L (3.5-5.1)
[2018-09-29] MEDS: INSULIN HUMULIN R 100 UNIT/ML 3ML SQ SCH ×4 (06:32→20:34)
[2018-09-29 08:00] VITALS: BP 151/63
[2018-09-29] MEDS: METOPROLOL TARTRATE 25 MG TAB PO SCH ×2 (08:57→20:29)
[2018-09-29] MEDS: FAMOTIDINE 20MG TAB 20 MG TAB PO SCH (08:59)
[2018-09-29] MEDS: ASPIRIN 81 MG EC TAB PO SCH (08:59)
[2018-09-29] MEDS: ROPINIROLE HCL 1 MG TABLET PO SCH ×3 (08:59→20:28)
[2018-09-29] MEDS: POLYETHYLENE GLYCOL 3350 17 GM POWD.PACK PO SCH (09:00)
[2018-09-29] MEDS ORDERED: LEVOFLOXACIN 500 MG TABLET PO SCH (09:00)
[2018-09-29] MEDS: INSULIN GLARGINE 100 UNITS/ML 10 ML VIAL SQ SCH (09:01)
[2018-09-29] MEDS: HEPARIN SODIUM 5000UNIT/ML 1ML VIAL SQ SCH ×2 (09:02→20:28)
[2018-09-29] MEDS: ESCITALOPRAM OXALATE 20 MG PO SCH ×2 (09:04→20:34)
[2018-09-29] MEDS: ***HM***Cholecalciferol (Vitamin D3) 1,000 UNIT PO SCH (09:05)
[2018-09-29] MEDS: MEMANTINE HCL 28 MG PO SCH (09:06)
--- NOTE | 2018-09-29 10:26 | NUR ---
UPDATED ORDER AND PROGRESS NOTES FAXED
[2018-09-29 11:45] VITALS: BP 140/56
--- NOTE | 2018-09-29 13:45 | NUR ---
PT NOTE: PATIENT PERFORMED SEATED EX'S + SIT-STAND TRANSFER X4 REPS WITH NWB TO LLE. PATIENT REQUIRES MAX ASSIST FOR SAFE TRANSFERS AND BED MOBILITY. PATIENT WILL BENEFIT FROM SNF REHAB TO [facility] AND IMPROVED STRENGTH FOR SAFE TRANSFERS. Addendum: 09/29/18 at 1453 by ROGERIO ROBLES PT Amended: Links added.
[2018-09-29 16:00] VITALS: BP 141/67
--- NOTE | 2018-09-29 17:30 | NUR ---
PT ACCEPTED ADVISED PRIMARY RN AND SIRISHA UNDER BASTER-- PATIENT TO BE DC'ED IN AM
[2018-09-29] MEDS: SODIUM CHLORIDE 0.9% 1000ML 1,000 ML IV SCH (17:38)
[2018-09-29 19:15] VITALS: BP 143/52
[2018-09-29] MEDS: MIRTAZAPINE 15 MG TABLET PO SCH (20:28)
[2018-09-29] MEDS: MONTELUKAST SODIUM 10 MG TAB PO SCH (20:28)
[2018-09-29] MEDS: DONEPEZIL HCL 5 MG TAB PO SCH (20:29)
[2018-09-29 23:19] VITALS: BP 144/55
[2018-09-30 03:13] VITALS: BP 140/68
[2018-09-30 04:13] LABS: HEMATOCRIT 37.5 % (36-48); MEAN CORPUSCULAR HEMOGLOBIN 30.4 pg (27.0-33.0); MEAN CORPUSCULAR HGB CONC 33.3 g/dL (32.0-36.0); MEAN CORPUSCULAR VOLUME 91.4 fL (79-99); PLATELET COUNT (AUTO) 405 K/uL (130-400); RED CELL DISTRIBUTION WIDTH 15.9 % (11.0-15.5); WHITE BLOOD COUNT (AUTO) 9.2 K/uL (4.8-10.8)
[2018-09-30 04:22] LABS: POTASSIUM 3.9 mmol/L (3.5-5.1)
[2018-09-30] MEDS: SODIUM CHLORIDE 0.9% 1000ML 1,000 ML IV SCH (06:29)
[2018-09-30] MEDS: INSULIN HUMULIN R 100 UNIT/ML 3ML SQ SCH (06:29)
[2018-09-30 07:57] VITALS: BP 161/59
[2018-09-30] MEDS: METOPROLOL TARTRATE 25 MG TAB PO SCH (09:26)
[2018-09-30] MEDS: ASPIRIN 81 MG EC TAB PO SCH (09:26)
[2018-09-30] MEDS: ROPINIROLE HCL 1 MG TABLET PO SCH (09:26)
[2018-09-30] MEDS: FAMOTIDINE 20MG TAB 20 MG TAB PO SCH (09:27)
[2018-09-30] MEDS: POLYETHYLENE GLYCOL 3350 17 GM POWD.PACK PO SCH (09:27)
[2018-09-30] MEDS: HEPARIN SODIUM 5000UNIT/ML 1ML VIAL SQ SCH (09:28)
[2018-09-30] MEDS: INSULIN GLARGINE 100 UNITS/ML 10 ML VIAL SQ SCH (09:32)
[2018-09-30] MEDS: ***HM***Cholecalciferol (Vitamin D3) 1,000 UNIT PO SCH (09:33)
[2018-09-30] MEDS: ESCITALOPRAM OXALATE 20 MG PO SCH (09:34)
[2018-09-30] MEDS: MEMANTINE HCL 28 MG PO SCH (09:34)
--- NOTE | 2018-09-30 10:40 | NUR ---
REPORT TELEPHONE REPORT WAS CALLED IN TO CARLIE LOZADA AT [facility]. ALL QUESTIONS ANSWERED. FACILITY WILL SEND CHIEF LIFESTYLE OFFICER TO PICK PATIENT UP IN 30 MINUTES.
--- NOTE | 2018-09-30 11:00 | NUR ---
INSTRUCTIONS DISCHARGE INSTRUCTIONS GIVEN TO PATIENT AND FAMILY USING TEACH BACK. IV HAS BEEN REMOVED WITH TIP INTACT. DIRECT PRESSURE APPLIED UNTIL BLEEDING CONTROLLED THEN SITE COVERED WITH GAUZE AND SECURED WITH TAPE.
--- NOTE | 2018-09-30 11:15 | NUR ---
TRANSPORT PATIENT BEING TRANSP[facility] BY THEIR STAFF FOUR CORNER STAYER MACHINE OPERATOR. ALL PERSONAL BELONGINGS WITH FAMILY. NO QUESTIONS OR CONCERNS VOICED. NO C/O PAIN.
== END 2018-09-30 11:38 | DRG 562 ==
LOC: EDH 08:47 → EDHIP 10:31 → 4AH 14:23
PROVIDERS: ADMIT Internal Medicine; ATTEND Internal Medicine
PROC: 2W3RX1Z Immobilization of Left Lower Leg using Splint (ICD-10-PCS; principal; 2018-09-16)
DX: S82.842A Displaced bimalleolar fracture of left lower leg, initial encounter for closed fracture (principal); J18.9 Pneumonia, unspecified organism; N39.0 Urinary tract infection, site not specified; E44.0 Moderate protein-calorie malnutrition; M62.82 Rhabdomyolysis; N17.9 Acute kidney failure, unspecified; E11.69 Type 2 diabetes mellitus with other specified complication; I10 Essential (primary) hypertension; E78.2 Mixed hyperlipidemia; F03.90 Unspecified dementia, unspecified severity, without behavioral disturbance, psychotic disturbance, mood disturbance, and anxiety; G20 Parkinson's disease; I25.10 Atherosclerotic heart disease of native coronary artery without angina pectoris; J45.909 Unspecified asthma, uncomplicated; M16.11 Unilateral primary osteoarthritis, right hip; Z74.01 Bed confinement status; Z85.828 Personal history of other malignant neoplasm of skin; Z90.49 Acquired absence of other specified parts of digestive tract; Z68.32 Body mass index [BMI] 32.0-32.9, adult
CPT/HCPCS: 36415; 70450; 71045; 73610; 80048; 80053; 80305; 81001; 82140; 82550; 82948; 83880; 84132; 84484; 85025; 85027; 86308; 87040; 87804; 93005; 97039; G0378; J0456; J1644; J1815; J1940; J1956; J2270; J2405; J3490; J7030; J7040

== ENCOUNTER 2018-11-26 12:19 | Emergency (ER) | payer OTHER, MEDICARE ==
[~2018-11-26 12:19] MED LIST changes: +AEC81 PO; +CHOL200074 PO; -CYAN250014 PO; -DIPH25TA18 PO; -FOLI1TAB15 PO; -LEVO500T2 PO; +MIRT-72 PO; -MV C PO
[2018-11-26 13:00] LABS: BASOPHILS % (AUTO) 0.5 % (0.0-5.0); EOSINOPHILS % (AUTO) 2.7 % (0.0-8.0); HEMATOCRIT 39.3 % (36-48); LYMPHOCYTES % (AUTO) 15.5 % (21.0-51.0); MEAN CORPUSCULAR HEMOGLOBIN 30.8 pg (27.0-33.0); MEAN CORPUSCULAR HGB CONC 33.5 g/dL (32.0-36.0); NEUTROPHILS % (AUTO) 72.3 % (40.0-77.0); PLATELET COUNT (AUTO) 280 K/uL (130-400); RED BLOOD CELL COUNT(AUTO) 4.27 MIL/uL (4.00-5.50); WHITE BLOOD COUNT (AUTO) 7.9 K/uL (4.8-10.8)
[2018-11-26 13:21] LABS: ALBUMIN 2.9 g/dL (3.5-5.0); BILIRUBIN,TOTAL 0.4 mg/dL (0.2-1.0); CREATININE 1.2 mg/dL (0.5-1.5); POTASSIUM 4.8 mmol/L (3.5-5.1); TOTAL PROTEIN, SERUM 6.6 g/dL (6.0-8.3)
[2018-11-26] MEDS ORDERED: INSULIN HUMULIN R 100 UNIT/ML 3ML ONE ×2 (14:04→14:58)
[2018-11-26 15:45] LABS: APPEARANCE,URINE Clear (CLEAR); BILIRUBIN,URINE Negative (NEGATIVE); COLOR,URINE Yellow (YELLOW); GLUCOSE, URINE (UA) >=1000 mg/dL (NEGATIVE); KETONES,URINE Negative (NEGATIVE); LEUKOCYTE ESTERASE ,URINE Trace (NEGATIVE); NITRATE,URINE Negative (NEGATIVE); OCCULT BLOOD,URINE Small (NEGATIVE); PROTEIN,URINE Negative (NEGATIVE); UROBILINOGEN,URINE 0.2 mg/dL (0.2-1.0)
[2018-11-26 16:35] LABS: BACTERIA,URINE Rare /HPF (None Seen); MUCUS,URINE Rare LPF (None Seen); RBC,URINE 0-1 /HPF (0-1); SQUAMOUS EPITHELIAL CELL,UR Rare /HPF (0-2)
== END 2018-11-26 16:56 | disposition home or self-care (01) ==
LOC: EDH 12:19
DX: E11.65 Type 2 diabetes mellitus with hyperglycemia (principal); N39.0 Urinary tract infection, site not specified; F03.90 Unspecified dementia, unspecified severity, without behavioral disturbance, psychotic disturbance, mood disturbance, and anxiety; E78.5 Hyperlipidemia, unspecified; Z90.49 Acquired absence of other specified parts of digestive tract; Z90.89 Acquired absence of other organs; Z98.890 Other specified postprocedural states; Z79.4 Long term (current) use of insulin
CPT/HCPCS: 36415; 80053; 81001; 82948 ×3; 85025; 93005; 96361; 96374; 96376; 99285; J1815 ×2

== ENCOUNTER 2018-11-27 11:52 | Observation (INO) | payer OTHER, MEDICARE ==
[~2018-11-27] VITALS: Ht 165.1 cm; Wt 87.3 kg
[2018-11-27 14:26] LABS: BASOPHILS % (AUTO) 1.3 % (0.0-5.0); HEMATOCRIT 37.8 % (36-48); MEAN CORPUSCULAR HEMOGLOBIN 30.2 pg (27.0-33.0); MEAN CORPUSCULAR HGB CONC 33.1 g/dL (32.0-36.0); MEAN CORPUSCULAR VOLUME 91.3 fL (79-99); MONOCYTES % (AUTO) 6.8 % (3.0-13.0); NEUTROPHILS % (AUTO) 76.9 % (40.0-77.0); PLATELET COUNT (AUTO) 269 K/uL (130-400); RED BLOOD CELL COUNT(AUTO) 4.14 MIL/uL (4.00-5.50); RED CELL DISTRIBUTION WIDTH 15.3 % (11.0-15.5); WHITE BLOOD COUNT (AUTO) 9.7 K/uL (4.8-10.8)
[2018-11-27] MEDS ORDERED: CEFTRIAXONE SODIUM 1 GM ONE (14:41)
[2018-11-27] MEDS ORDERED: INSULIN HUMULIN R 100 UNIT/ML 3ML ONE (14:42)
[2018-11-27 15:10] LABS: ALBUMIN 2.8 g/dL (3.5-5.0); BILIRUBIN,TOTAL 0.3 mg/dL (0.2-1.0); CREATININE 1.1 mg/dL (0.5-1.5); POTASSIUM 4.2 mmol/L (3.5-5.1); TOTAL PROTEIN, SERUM 6.1 g/dL (6.0-8.3)
[2018-11-27] MEDS ORDERED: DIPHENHYDRAMINE HCL 25 MG CAPSULE PO PRN (20:45)
[2018-11-27] MEDS ORDERED: ONDANSETRON HCL 4 MG/2 ML VIAL IVP PRN (20:45)
[2018-11-27] MEDS ORDERED: DEXTROSE 50%-WATER 50 ML DISP.SYRIN IV PRN (20:45)
[2018-11-27] MEDS ORDERED: GLUCAGON 1MG KIT 1 MG ML IM PRN (20:45)
[2018-11-27] MEDS ORDERED: ACETAMINOPHEN 325 MG TAB PO PRN (20:45)
[2018-11-27] MEDS: INSULIN R PO SSI SQ SCH (21:00)
[2018-11-27 22:51] LABS: APPEARANCE,URINE Clear (CLEAR); BILIRUBIN,URINE Negative (NEGATIVE); COLOR,URINE Yellow (YELLOW); GLUCOSE, URINE (UA) >=1000 mg/dL (NEGATIVE); KETONES,URINE Negative (NEGATIVE); LEUKOCYTE ESTERASE ,URINE Moderate (NEGATIVE); NITRATE,URINE Negative (NEGATIVE); OCCULT BLOOD,URINE Nonhemolyzed Trace (NEGATIVE); PROTEIN,URINE Negative (NEGATIVE); UROBILINOGEN,URINE 0.2 mg/dL (0.2-1.0)
[2018-11-27 23:53] LABS: BACTERIA,URINE None Seen /HPF (None Seen); SQUAMOUS EPITHELIAL CELL,UR Few /HPF (0-2); YEAST,URINE BUDDING None Seen /HPF (None Seen)
[2018-11-27 23:55] VITALS: BP 136/50
[2018-11-28] MEDS ORDERED: LIDO700A30 TP (00:04)
[2018-11-28] MEDS ORDERED: METO25TA6 PO (00:04)
[2018-11-28] MEDS: FAMOTIDINE 20MG TAB 20 MG TAB PO SCH ×3 (00:14→19:52)
[2018-11-28] MEDS: 1/2 NORMAL SALINE 1,000 ML IV SCH ×4 (00:14→21:51)
[2018-11-28] MEDS: INSULIN GLARGINE 100 UNITS/ML 10 ML VIAL SQ SCH ×2 (00:15→10:18)
--- NOTE | 2018-11-28 00:20 | NUR ---
ADMIT PT ADMITTED TO ROOM 325,AAOX3. DENIES ANY PAINS AT THIS TIME. ADMISSION CARED ONE. ADMISSION DATA BASE COMPLETED. STARTED PT ON IVF OF 1/2 NS REGULATED AT 100CC/HR VIA PIV G20 ON RAC. LANTUS DOSE AND PEPCID DOSES NOT GIVEN IN ER ADMINISTERED. PICTURES OF REDNESS AND EXCORIATION TO RT UNDER THE BREAST AND JOSELYN-ANAL AREAS TAKEN, PLACED IN THE CHART. BARRIER CREAM APPLIED THEN DIAPER PLACED PER PT'S REQUEST SINCE SHE IS INCONTINENT. RE-POSITIONED IN BED COMFORTABLY WITH HOB ELEVATED. ORIENTED TO ROOM AND UNIT. IN FOR MORE CARE AND MANAGEMENT.
--- NOTE | 2018-11-28 02:00 | NUR ---
ROUNDS PT FAIRLY ASLEEP WITH RESPIRATIONS EVEN AND UNLABORED. NO NOTED DISTRESS. KEPT UNDISTURBED FOR NOW. WILL CONTINUE TO MONITOR. CALL LIGHT WITHIN REACH.
[2018-11-28 04:00] VITALS: BP 124/56
[2018-11-28 05:56] LABS: HEMATOCRIT 34.8 % (36-48); MEAN CORPUSCULAR HGB CONC 33.8 g/dL (32.0-36.0); MEAN CORPUSCULAR VOLUME 91.8 fL (79-99); PLATELET COUNT (AUTO) 230 K/uL (130-400); RED BLOOD CELL COUNT(AUTO) 3.79 MIL/uL (4.00-5.50); RED CELL DISTRIBUTION WIDTH 15.5 % (11.0-15.5); WHITE BLOOD COUNT (AUTO) 6.5 K/uL (4.8-10.8)
[2018-11-28 06:03] LABS: HEMOGLOBIN A1C 9.1 % (4.0-6.0)
[2018-11-28 06:06] LABS: CREATININE 0.9 mg/dL (0.5-1.5); POTASSIUM 3.7 mmol/L (3.5-5.1)
--- NOTE | 2018-11-28 06:15 | NUR ---
MEDS AWAKENED PT FOR DUE INSULIN DOSE, TOLERATED WELL. NO DISTRESS NOTED. NO CONCERNS VERBALIZED. KEPT COMFORTABLE IN BED. FOR MORE CARE.
[2018-11-28] MEDS: INSULIN R PO SSI SQ SCH ×4 (06:16→20:03)
[2018-11-28 08:00] VITALS: BP 131/58
[2018-11-28] MEDS: LINAGLIPTIN 5 MG TABLET PO SCH (09:52)
[2018-11-28] MEDS: CEFTRIAXONE SODIUM 1 GM IVP SCH (09:52)
[2018-11-28 12:00] VITALS: BP 126/57
[2018-11-28] MEDS: ROPINIROLE HCL 1 MG TABLET PO SCH ×2 (13:10→20:12)
[2018-11-28] MEDS: CLOTRIMAZOLE 30 GM CREAM.GM. TP SCH ×2 (13:23→19:52)
--- NOTE | 2018-11-28 14:35 | NUR ---
RD Notification Patient tolerating 75gm CCD with no report of GI distress and PO intake at 100%. Patient LBM 11/27/18. Patient monitored labs: Glu 260, A1C 9.1, Ca 8.3, Alb 2.8. RD provided Diabetes diet education. Patient with questions. RD answered all questions and reviewed reference materials and handouts. Patient verbalized understanding. RD to continue to monitor. Please notify RD as nutritional concerns arise. Thank you. Addendum: 11/29/18 at [address] RD Amended: Links added.
--- NOTE | 2018-11-28 14:40 | NUR ---
Diet Education RD provided Diabetes and Nutrition Diet education. RD reviewed reference materials and handouts with patient. Diet education provided with Belarusian translation. Handouts and reference materials provided in Belarusian. Patient and family verbalized understanding. RD to continue to monitor. Addendum: 11/29/18 at [address] RD Amended: Links added.
[2018-11-28 16:00] VITALS: BP 132/56
--- NOTE | 2018-11-28 16:07 | NUR ---
DCP CM met with pt and daughter discussed dc plans. Pt is semi-independent prior to admission, lives at home with daughter and other family members. Has a walker, shower chair, grab bars in the restroom, bedside commode, recliner, and provider 2hrs/day. Denies any other equipments/services. Feels safe to go back home, daughter and family able to assist with transportation and needs as necessary. DC plan to home once stable. CM to cont to follow up. Addendum: 11/28/18 at 1609 by JIMMY WORLEY LVN CM Amended: Links added.
[2018-11-28] MEDS: GLIPIZIDE 5 MG TABLET PO SCH (16:30)
[2018-11-28] MEDS: METFORMIN HCL 500 MG TABLET PO SCH (17:00)
[2018-11-28 19:30] VITALS: BP 128/54
[2018-11-28] MEDS: METOPROLOL TARTRATE 25 MG TAB PO SCH (19:52)
--- NOTE | 2018-11-28 19:55 | NUR ---
ASSESS SHIFT ASSESSMENT DONE, PLEASE REFER TO CHART. DUE MEDS ADMINISTERED, TOLERATED WELL. DIAPER CHANGED AND RE-POSITIONED COMFORTABLY IN BED. CALL LIGHT WITHIN REACH. WILL MONITOR PT. Addendum: 11/29/18 at 0328 by KIT BRANDON RN RN Amended: Links added.
[2018-11-28] MEDS ORDERED: MONTELUKAST SODIUM 10 MG TAB PO SCH (21:00)
[2018-11-28] MEDS ORDERED: DONEPEZIL HCL 5 MG TAB PO SCH (21:00)
[2018-11-28] MEDS ORDERED: MIRTAZAPINE 15 MG TABLET PO SCH (21:00)
[2018-11-28] MEDS ORDERED: INSULIN GLARGINE 100 UNITS/ML 10 ML VIAL SQ SCH ×2 (21:00)
[2018-11-28] MEDS ORDERED: LIDOCAINE 5% TOPICAL PATCH TP SCH (21:00)
[2018-11-28] MEDS ORDERED: ATORVASTATIN CALCIUM 10 MG TABLET PO SCH (21:00)
[2018-11-28 23:30] VITALS: BP 139/57
--- NOTE | 2018-11-29 02:00 | NUR ---
ROUNDS PT RESTING WELL, FAIRLY ASLEEP. NO DISTRESS NOTED. KEPT UNDISTURBED FOR NOW. WILL CONTINUE TO MONITOR CALL LIGHT WITHIN REACH.
[2018-11-29] MEDS: 1/2 NORMAL SALINE 1,000 ML IV SCH ×2 (02:06→06:14)
[2018-11-29 03:30] VITALS: BP 131/64
[2018-11-29 04:52] LABS: HEMATOCRIT 35.1 % (36-48); MEAN CORPUSCULAR HEMOGLOBIN 30.4 pg (27.0-33.0); MEAN CORPUSCULAR HGB CONC 33.7 g/dL (32.0-36.0); MEAN CORPUSCULAR VOLUME 90.4 fL (79-99); PLATELET COUNT (AUTO) 269 K/uL (130-400); RED BLOOD CELL COUNT(AUTO) 3.88 MIL/uL (4.00-5.50); RED CELL DISTRIBUTION WIDTH 15.3 % (11.0-15.5); WHITE BLOOD COUNT (AUTO) 7.8 K/uL (4.8-10.8)
[2018-11-29 05:08] LABS: CREATININE 0.8 mg/dL (0.5-1.5); POTASSIUM 3.4 mmol/L (3.5-5.1)
--- NOTE | 2018-11-29 06:05 | NUR ---
H/A PT COMPLAINTS OF HEADACHE. DUE MEDS GIVEN AND TYLENOL PO GIVEN FOR PAIN. KEPT RESTED AND COMFORTABLE. WILL RE-ASSESS PT. FOR MORE CARE.
[2018-11-29] MEDS: INSULIN R PO SSI SQ SCH ×2 (06:10→12:08)
[2018-11-29] MEDS: GLIPIZIDE 5 MG TABLET PO SCH (06:10)
[2018-11-29 08:00] VITALS: BP 127/59
[2018-11-29] MEDS ORDERED: CHOLECALCIFEROL 1000 UNIT PO SCH (09:00)
[2018-11-29] MEDS ORDERED: ASPIRIN 81 MG EC TAB PO SCH (09:00)
[2018-11-29] MEDS ORDERED: MEMANTINE HCL 28 MG PO SCH (09:00)
[2018-11-29] MEDS: FAMOTIDINE 20MG TAB 20 MG TAB PO SCH (09:43)
[2018-11-29] MEDS: METFORMIN HCL 500 MG TABLET PO SCH ×2 (09:44→12:09)
[2018-11-29] MEDS: METOPROLOL TARTRATE 25 MG TAB PO SCH (09:44)
[2018-11-29] MEDS: LINAGLIPTIN 5 MG TABLET PO SCH (09:55)
[2018-11-29] MEDS: ROPINIROLE HCL 1 MG TABLET PO SCH (09:55)
[2018-11-29] MEDS: CLOTRIMAZOLE 30 GM CREAM.GM. TP SCH (09:56)
[2018-11-29] MEDS: CEFTRIAXONE SODIUM 1 GM IVP SCH (09:56)
[2018-11-29] MEDS ORDERED: CEPH-578 PO (10:51)
[2018-11-29] MEDS ORDERED: SITA100T12 PO (10:54)
[2018-11-29] MEDS ORDERED: CLOT15CR62 TP (11:06)
[2018-11-29 11:58] VITALS: BP 140/58
--- NOTE | 2018-11-29 13:00 | NUR ---
DISCHARGE INSTRUCTIONS GIVEN. IV DISCHARGE WITH INNER CANNULA INTACT. ALL QUESTIONS ANSWERED. PATIENT TO FOLLOW UP WITH PCP IN ONE WEEK.
== END 2018-11-29 13:20 | disposition home or self-care (01) ==
LOC: EDH 11:52 → EDHIP 19:40 → 3DH 23:56
PROVIDERS: ADMIT Family Medicine; ATTEND Family Medicine
DX: E11.65 Type 2 diabetes mellitus with hyperglycemia (principal); E78.5 Hyperlipidemia, unspecified; E66.9 Obesity, unspecified; B15.9 Hepatitis A without hepatic coma; B37.2 Candidiasis of skin and nail; G25.81 Restless legs syndrome; I10 Essential (primary) hypertension; N39.0 Urinary tract infection, site not specified; F03.90 Unspecified dementia, unspecified severity, without behavioral disturbance, psychotic disturbance, mood disturbance, and anxiety; Z68.32 Body mass index [BMI] 32.0-32.9, adult; Z79.899 Other long term (current) drug therapy; Z90.49 Acquired absence of other specified parts of digestive tract; Z82.49 Family history of ischemic heart disease and other diseases of the circulatory system; Z83.3 Family history of diabetes mellitus
CPT/HCPCS: 36415 ×3; 80048 ×2; 80053; 81001; 82948 ×9; 83036; 85025; 85027 ×2; 96361 ×3; 96372 ×2; 96374; 96376; 99284; A4510; G0378 ×41; J0696 ×3; J1815 ×4; 96360

== ENCOUNTER 2019-01-07 18:41 | Emergency (ER) | payer OTHER, MEDICARE ==
[~2019-01-07 18:41] MED LIST changes: +CEPH-578 PO; +CLOT15CR62 TP; -ESCI20TA36 PO; +LIDO700A30 TP; +METO25TA6 PO; +SITA100T12 PO
[2019-01-07] MEDS ORDERED: ACETAMINOPHEN 325 MG TAB ONE (19:24)
== END 2019-01-07 21:22 | disposition home or self-care (01) ==
LOC: EDH 18:41
DX: S70.01XA Contusion of right hip, initial encounter (principal); S80.02XA Contusion of left knee, initial encounter; S80.01XA Contusion of right knee, initial encounter; R91.1 Solitary pulmonary nodule; Z79.899 Other long term (current) drug therapy; E11.9 Type 2 diabetes mellitus without complications; E78.5 Hyperlipidemia, unspecified; W07.XXXA Fall from chair, initial encounter; Y93.89 Activity, other specified; Y92.89 Other specified places as the place of occurrence of the external cause; Y99.8 Other external cause status
CPT/HCPCS: 73562; 74176

== ENCOUNTER 2019-01-18 12:05 | Emergency (ER) | payer OTHER, MEDICARE | END 2019-01-18 15:57 | disposition home or self-care (01) | LOC: EDH 12:05 | DX: S93.401A Sprain of unspecified ligament of right ankle, initial encounter (principal); E11.9 Type 2 diabetes mellitus without complications; E78.5 Hyperlipidemia, unspecified; F03.90 Unspecified dementia, unspecified severity, without behavioral disturbance, psychotic disturbance, mood disturbance, and anxiety; G20 Parkinson's disease; Z85.828 Personal history of other malignant neoplasm of skin; Z79.4 Long term (current) use of insulin; X58.XXXA Exposure to other specified factors, initial encounter; Y93.89 Activity, other specified; Y92.89 Other specified places as the place of occurrence of the external cause; Y99.8 Other external cause status | CPT/HCPCS: 73562; 73610 ==

== ENCOUNTER 2022-12-28 07:37 | Observation (INO) | payer OTHER, MEDICARE ==
[~2022-12-28] VITALS: Ht 160 cm; Wt 87.1 kg
[~2022-12-28 07:37] MED LIST changes: -ACET-66 PO; -AEC81 PO; +BENZ-226 PO; -CEPH-578 PO; +CETI10TA57 PO; -CHOL200074 PO; -CLOT15CR62 TP; +ESCI20TA38 PO; +GABA-529 PO; -GLIP10TA9 PO; +HYDR-3830 PO; -INSLAN SQ; +IPRAHFA IH; -LIDO700A30 TP; +LORA0.5T83 PO; +MELO5CAP3 PO; +MEMA10TA55 PO; -MEMA28CA PO; +METO-408 PO; -METO25TA6 PO; -MIRT-72 PO; +MIRT7.5T11 PO; +MONT-39 PO; -MONT10TA21 PO; +OXCA150T27 PO; -PRAV20TA4 PO; -ROPI1TAB11 PO
[2022-12-28] MEDS ORDERED: ALBUTEROL INHALER 90MCG/INH IH ONE (08:00)
[2022-12-28 08:02] LABS: BASOPHILS % (AUTO) 0.3 % (0.0-5.0); EOSINOPHILS % (AUTO) 1.9 % (0.0-8.0); HEMATOCRIT 32.6 % (36-48); MEAN CORPUSCULAR HGB CONC 33.4 g/dL (32.0-36.0); MEAN CORPUSCULAR VOLUME 89.8 fL (79-99); MONOCYTES % (AUTO) 9.7 % (3.0-13.0); NEUTROPHILS % (AUTO) 65.8 % (40.0-77.0); PLATELET COUNT (AUTO) 299 K/uL (130-400); RED BLOOD CELL COUNT(AUTO) 3.63 MIL/uL (4.00-5.50); RED CELL DISTRIBUTION WIDTH 14.2 % (11.0-15.5); WHITE BLOOD COUNT (AUTO) 9.5 K/uL (4.8-10.8)
[2022-12-28 08:17] LABS: ALBUMIN 2.1 g/dL (3.5-5.0); CREATININE 0.9 mg/dL (0.5-1.5); POTASSIUM 3.1 mmol/L (3.5-5.1)
[2022-12-28 08:24] LABS: B-TYPE NATRIURETIC PEPTIDE 108 pg/mL (0-100)
[2022-12-28] MEDS ORDERED: SOLU-MEDROL 125MG VIAL IVP ONE (08:30)
[2022-12-28] MEDS ORDERED: POTASSIUM CHLORIDE 10% ELIXIR 20 MEQ/15 ML UDCUP PO ONE (09:00)
[2022-12-28] MEDS ORDERED: MEROPENEM 1 GM VIAL IVPB SCH (09:00)
[2022-12-28] MEDS ORDERED: NIRM1TAB5 PO (09:24)
[2022-12-28] MEDS ORDERED: PRED50TA2 PO (09:24)
[2022-12-28] MEDS: MEROPENEM 1 GM VIAL IVPB SCH ×2 (10:25→22:30)
[2022-12-28] MEDS ORDERED: FAMOTIDINE 20MG TAB PO ONE (10:30)
[2022-12-28] MEDS ORDERED: GUAIFENESIN-DM 200/20 MG 10 ML PO PRN (13:00)
[2022-12-28] MEDS: AZITHROMYCIN 500MG+NS 250ML IVPB SCH (13:40)
[2022-12-28] MEDS: BUDESONIDE 0.25 MG/2 ML INH IH SCH (18:25)
[2022-12-29 00:45] VITALS: BP 150/59
[2022-12-29 04:00] VITALS: BP 153/54
[2022-12-29] MEDS: BUDESONIDE 0.25 MG/2 ML INH IH SCH ×2 (06:09→18:23)
[2022-12-29 07:37] VITALS: BP 154/57
[2022-12-29] MEDS: ENOXAPARIN SODIUM 40 MG/0.4 ML SYRINGE SQ SCH (09:22)
[2022-12-29] MEDS: MEROPENEM 1 GM VIAL IVPB SCH ×2 (10:24→23:14)
[2022-12-29 11:28] VITALS: BP 158/53
[2022-12-29] MEDS ORDERED: POTASSIUM CHLORIDE 10% ELIXIR 20 MEQ/15 ML UDCUP PO PRN (12:00)
[2022-12-29] MEDS ORDERED: MAGNESIUM 2GM PREMIX 50ML 50 ML IV PRN (12:00)
[2022-12-29] MEDS ORDERED: POTASSIUM CHLORIDE 20MEQ/100ML 100 ML IV PRN (12:00)
[2022-12-29] MEDS: INSULIN HUMULIN R 100 UNIT/ML 3ML SQ SCH ×3 (12:41→21:00)
[2022-12-29] MEDS: AZITHROMYCIN 500MG+NS 250ML IVPB SCH (12:44)
[2022-12-29] MEDS: KCL 20 MEQ ERTAB PO PRN ×2 (16:29→23:38)
[2022-12-29 16:40] VITALS: BP 142/56
[2022-12-29 20:00] VITALS: BP 158/57
[2022-12-29] MEDS ORDERED: INSULIN GLARGINE 100 UNITS/ML 10 ML VIAL SQ SCH (21:00)
[2022-12-29] MEDS: NYSTATIN 15 GM POWDER TP SCH (21:28)
[2022-12-30] VITALS: BP 150/62
[2022-12-30] MEDS: KCL 20 MEQ ERTAB PO PRN (02:06)
[2022-12-30 04:00] VITALS: BP 158/55
[2022-12-30 04:58] LABS: BASOPHILS % (AUTO) 0.2 % (0.0-5.0); EOSINOPHILS % (AUTO) 0.4 % (0.0-8.0); HEMATOCRIT 32.2 % (36-48); LYMPHOCYTES % (AUTO) 20.6 % (21.0-51.0); MEAN CORPUSCULAR HEMOGLOBIN 29.9 pg (27.0-33.0); MEAN CORPUSCULAR HGB CONC 32.9 g/dL (32.0-36.0); MEAN CORPUSCULAR VOLUME 90.7 fL (79-99); MONOCYTES % (AUTO) 7.4 % (3.0-13.0); NEUTROPHILS % (AUTO) 70.7 % (40.0-77.0); PLATELET COUNT (AUTO) 331 K/uL (130-400); RED BLOOD CELL COUNT(AUTO) 3.55 MIL/uL (4.00-5.50); WHITE BLOOD COUNT (AUTO) 12.9 K/uL (4.8-10.8)
[2022-12-30 05:19] LABS: CREATININE 0.9 mg/dL (0.5-1.5); MAGNESIUM 2.1 mg/dL (1.80-2.40); TOTAL PROTEIN, SERUM 5.8 g/dL (6.0-8.3)
[2022-12-30] MEDS: INSULIN HUMULIN R 100 UNIT/ML 3ML SQ SCH ×3 (05:50→16:30)
[2022-12-30] MEDS: BUDESONIDE 0.25 MG/2 ML INH IH SCH (06:17)
[2022-12-30 07:58] VITALS: BP 159/56
[2022-12-30] MEDS: ENOXAPARIN SODIUM 40 MG/0.4 ML SYRINGE SQ SCH (09:39)
[2022-12-30] MEDS: NYSTATIN 15 GM POWDER TP SCH (09:43)
[2022-12-30] MEDS: MEROPENEM 1 GM VIAL IVPB SCH (11:25)
[2022-12-30 11:34] VITALS: BP 169/59
[2022-12-30] MEDS ORDERED: METOPROLOL SUCCINATE 25 MG TAB.SR.24H PO SCH (12:00)
[2022-12-30] MEDS: AZITHROMYCIN 500MG+NS 250ML IVPB SCH (14:17)
[2022-12-30 16:45] VITALS: BP 156/58
== END 2022-12-30 18:10 ==
LOC: EDH 07:37 → INTOOBSV 10:04 → EDHIP 10:04 → 4AH 12-29 00:15
PROVIDERS: ADMIT Internal Medicine; ATTEND Internal Medicine
DX: A41.89 Other specified sepsis (principal); U07.1 COVID-19; J96.01 Acute respiratory failure with hypoxia; N39.0 Urinary tract infection, site not specified; B96.20 Unspecified Escherichia coli [E. coli] as the cause of diseases classified elsewhere; B96.1 Klebsiella pneumoniae [K. pneumoniae] as the cause of diseases classified elsewhere; E43 Unspecified severe protein-calorie malnutrition; R53.2 Functional quadriplegia; L89.152 Pressure ulcer of sacral region, stage 2; I10 Essential (primary) hypertension; E11.9 Type 2 diabetes mellitus without complications; G20 Parkinson's disease; E78.5 Hyperlipidemia, unspecified; B36.9 Superficial mycosis, unspecified; L30.8 Other specified dermatitis; Q33.3 Agenesis of lung; Z66 Do not resuscitate; Z78.9 Other specified health status; Z85.828 Personal history of other malignant neoplasm of skin; Z79.899 Other long term (current) drug therapy
CPT/HCPCS: 96365; 96366 ×3; 96375; 96367; 99285; 84484; 80053 ×2; 83880; 85025 ×2; 87040 ×2; 83605; 36415 ×2; 87635; 71045; 93005; 94640 ×4; 94664; 96372 ×2; 82948 ×6; 97161; 97039 ×3; 97116; 83735; 97530; C9803; J2930; J0456 ×3; J2185 ×5; G0378 ×28; J1650 ×2